=== PATIENT | female | born 1970 | race Two or more races ===

== ENCOUNTER 2021-03-17 19:32 | Emergency (ER) | payer OTHER ==
[~2021-03-17] VITALS: Ht 157.5 cm; Wt 77.1 kg
--- NOTE | 2021-03-17 19:47 | NUR ---
PT BIBSELF WITH C/O DIZZY X2 DAYS AND STATES THAT SOMTIMES THE "ROOM SPINNING." -N/V +NEW GLASSES THIS WEEK. PT ALERT AND ORIENTED X4. NO COMPLAINTS OF SHOTNESS OF BREATH
[2021-03-17] MEDS ORDERED: MECLIZINE HCL 25 MG TABLET ONE (20:04)
[2021-03-17] MEDS ORDERED: ACETAMINOPHEN ES 500 MG TABLET ONE (20:04)
--- NOTE | 2021-03-17 20:15 | NUR ---
BLOOD TAKEN AND SENT TO THE LAB.
[2021-03-17] MEDS: MECLIZINE HCL 12.5 MG TABLET PO ONE (20:18)
[2021-03-17] MEDS: IV NS 0.9% 1,000 ML BAG IV ONE (20:18)
[2021-03-17] MEDS: ACETAMINOPHEN ES 500 MG TABLET PO ONE (20:18)
[2021-03-17 20:23] LABS: BASOPHILS % (AUTO) 0.7 % (0.0-2.0); EOSINOPHILS % (AUTO) 2.1 % (0.0-6.0); HEMATOCRIT 41 % (33-45); LYMPHOCYTES # (AUTO) 2.2 K/uL (0.8-4.8); LYMPHOCYTES % (AUTO) 33.8 % (20.0-44.0); MEAN CORPUSCULAR HGB CONC 35 g/dl (31.0-36.0); MEAN CORPUSCULAR VOLUME 93 fL (82-100); MONOCYTES # (AUTO) 0.4 K/uL (0.1-1.30); MONOCYTES % (AUTO) 5.9 % (2.0-12.0); NEUTROPHILS # (AUTO) 3.8 K/uL (1.8-8.9); NEUTROPHILS % (AUTO) 57.5 % (43.0-81.0); PLATELET COUNT (AUTO) 241 K/uL (150-450); RED BLOOD CELL COUNT(AUTO) 4.37 MIL/uL (4.0-5.2); WHITE BLOOD COUNT (AUTO) 6.5 K/uL (4.3-11.0)
[2021-03-17 20:36] LABS: ALBUMIN 4.3 g/dL (3.4-5.0); BILIRUBIN,DIRECT 0.1 mg/dL (0.0-0.2); BILIRUBIN,TOTAL 0.2 mg/dL (0.2-1.0); CALCIUM, SERUM 9.3 mg/dL (8.5-10.1); CREATININE 0.9 mg/dL (0.6-1.3); POTASSIUM 3.6 mmol/L (3.5-5.1); TOTAL PROTEIN, SERUM 9.2 g/dL (6.4-8.2)
--- NOTE | 2021-03-17 21:12 | NUR ---
IV removed. Catheter intact and site benign. Pressure and 4x4 applied to site. No bleeding noted.
--- NOTE | 2021-03-17 21:12 | NUR ---
Patient discharged to home in stable condition. Written and verbal after care instructions given. Patient verbalizes understanding of instruction. Pt ambulated out of ED. VSS.
[2021-03-17 21:13] VITALS: BP 139/75
== END 2021-03-17 21:13 | disposition home or self-care (01) ==
LOC: ER 19:46
DX: R42 Dizziness and giddiness (principal)
CPT/HCPCS: 36415; 80048; 80076; 85025; 96360; 99283; J7030; J8597